=== PATIENT | male | born 1995 | race Caucasian/White ===

== ENCOUNTER → 2019-05-19 | Outpatient (CLI) | payer OTHER ==
--- NOTE | 2019-05-21 13:21 | CARD ---
MR#: [id number] Date of Study: 05/19/2019 Ordering Physician: YAJAIRA BONE, Referring Physician: Shannan ODBSON: Benita Joshuadannie APPROVED REPORT INDICATION Chest Pain RISK FACTORS Smoking Reason : Patient complained of pain PROCEDURE The patient underwent an Exercise Stress Test using the Sorin Protocol. Blood pressure, heart rate, a nd EKG were monitored. An Echocardiogram was performed by endoscopy technician in four stages in quad fashion. At peak stress four se lected images were obtained and placed side by side with resting images for comparison. STRESS ECHO FINDINGS The resting Echocardiogram showed normal left ventricular systolic contractility with an estimated Ej ection Fraction of about 55 %. The Stress Echocardiogram showed normal augmentation of myocardial wall segments using a 16 segment m jamie. The Stress Echocardiogram left ventricular systolic contractility has an estimated Ejection Fraction of about 75%. Test Type: Exercise Stress Nurse/Tech: Candie Lopez R.N. Test Indications: CHEST PAIN Cardiac History and Allergies: SMOKER Medications: NONE Resting ECG: SR Resting Heart Rate: 88 bpm Resting Blood Pressure: 143/78mmHg Pretest Chest Pain: No chest pain Nurse/Tech Notes LUNGS CTA Stress Symptoms No chest pain or symptoms. POST EXERCISE Reason for Termination: Reached target heart rate Target HR: Yes Max HR: 191 bpm 98% of Maximum Predicted HR: 195 bpm Exercise duration: 11:50 min:sec, 4 Stage Exercise capacity: 12.8METs Max Blood Pressure: 162/83mmHg Blood Pressure response to exercise: Normal blood pressure response during stress. Heart Rate response to exercise: NORMAL Chest Pain: No. Arrhythmia: No. ST Change: Yes. non-diagnostic INTERPRETATION Stress EKG Conclusion: Baseline EKG showed sinus rhythm. Non-diagnostic changes at peak stress. No arrhythmias. Preliminary Notification Critical Value: No <Conclusion> Treadmill exercise stress echocardiogram did not show any evidence of ischemia or infarct. Normal left ventricle systolic function with ejection fraction estimated at 55%. Patient had good activity tolerance. Low risk for cardiac events. Signed by : Yajaira Bone, Electronically Approved : 05/19/2019 15:57:44
== END | disposition home or self-care (01) ==
LOC: ECHO 12:26
PROVIDERS: ATTEND Internal Medicine Cardiovascular Disease
DX: R07.9 Chest pain, unspecified (principal)
CPT/HCPCS: 93017; 93350